=== PATIENT | female | born 2000 | race Caucasian/White ===

== ENCOUNTER 2025-01-10 12:11 | Emergency (ER) | payer MEDICAID, SELFPAY ==
[2025-01-10 12:12] VITALS: BP 142/67; PULSE 87; RESP 16; TEMP 36.7; O2SAT 100
--- NOTE | 2025-01-10 12:42 | ED.VIS.BACK ---
HPI History of Present Illness Chief Complaint: Back Detail of Chief Complaint: Back pain Informant: patient Narrative Narrative: Patient presents with low back pain that started around midnight. Patient states that she is about 7 weeks . She had intercourse with her fianc? last night and afterwards when she peed she noticed a little bit of blood. She complains of some lower abdominal cramping. She had an ultrasound last week that they were able to see a intrauterine with heartbeat. She has another ultrasound scheduled in 2 days. She has not had any further vaginal bleeding. She denies injury to her back. She denies pain radiating down her legs. PFSH PFSH Home Medications ?Medication ?Instructions ?Recorded ?Last Taken ?Type nitrofurantoin 100 mg PO Q12H 7 days #14 caps 01/10/25 Unknown Rx monohydrate/macrocrystals 100 mg capsule (Macrobid) Allergy/AdvReac Type Severity Reaction Status Date / Time azithromycin (From z pack) Allergy Mild WHEEZING Verified 01/10/25 12:15 Social History Smoking Status: Never smoker ROS ROS ED Review of Systems ROS Unobtainable: other Constitutional Constitutional ED: Reports lethargy; Denies chills, fever(s), sweats or weight loss Eyes Eyes: Denies blurry vision, change in vision or diplopia ENT ENT ED: Denies rhinorrhea or sore throat Cardiovascular Cardiovascular: Denies chest pain, orthopnea or racing heartbeat Respiratory/Chest Respiratory/Chest: Denies cough, dyspnea, dyspnea on exertion, orthopnea or sputum Gastrointestinal Gastrointestinal: Denies abdominal pain, diarrhea, nausea or vomiting Genitourinary Genitourinary ED: Denies dysuria, hematuria or urinary frequency Musculoskeletal Musculoskeletal: Reports back pain; Denies arthralgias, myalgias or neck pain Integumentary Denies abscess, Abrasions or rash Neurologic Neurologic: Denies headache(s) or weakness Psychiatric Psychiatric: Denies anxiety, depression or suicidal thoughts Endocrine Endocrinology: Denies polydipsia, polyphagia or polyuria Hematologic/Lymphatic Hematologic/Lymphatic: Denies easy bleeding, easy bruising or lymphadenopathy Allergic/Immunologic Allergic/Immunologic ED: Denies mouth swelling, tongue swelling or urticaria EXAM Physical Exam Const Vital Signs: 01/10/25 12:12 01/10/25 14:12 Temperature 98.1 F Temperature Source Temporal Pulse Rate 87 64 Respiratory Rate 16 18 Blood Pressure 142/67 H 121/66 H Blood Pressure Mean 92 84 Pulse Ox 100 98 Oxygen Delivery Method Room Air Room Air Positive well nourished and well developed General Appearance ED: well developed and NAD HEENT Reports TM's clear and moist mucous membranes normocephalic and atraumatic; Negative for trauma or tenderness Tympanic Membrane ED: Yes TM's clear Eyes PERRL and EOMs intact bilaterally General Eye ED: Negative for pale conjunctiva or scleral icterus Neck no lymphadenopathy, supple and no JVD General: Negative for tenderness Chest Wall inspection of chest normal and palpation of chest normal Chest: Negative for tenderness Resp normal respiratory effort and clear to auscultation bilaterally Effort and Inspection: Negative for respiratory distress or pain with movement Auscultation: Negative for rhonchi, wheezes or diminished lung sounds Cardio regular rate, regular rhythm, S1 normal heart sound, S2 normal heart sound and no murmurs Peripheral Pulses: pulses 2+ throughout GI normal to inspection, nondistended, normoactive bowel sounds, soft to palpation, non-tender, non-distended and no masses Back/Spine no CVA tenderness Back/Spine Narrative: Mild tenderness palpation over left lumbar paraspinal musculature. Negative straight leg raises. Deep tendon reflexes plus 2 out of 4 bilaterally at the patella and Achilles. She has normal 5 extension. She has normal sensation to light touch Extremity normal to inspection General Extremety ED: Negative for edema General Extremity: Negative for edema Neuro oriented x3, CN's II-XII intact bilaterally, no sensory deficits noted and gait normal Sensorium / Orientation: awake, alert, oriented to person, oriented to place and oriented to time Motor Exam: strength 5/5 throughout and strength abnormal Psych mental status grossly normal Skin no rashes or lesions noted and no wounds MDM MDM MDM Narrative Medical decision making narrative: Patient presents with low back pain and some spotting after intercourse last night. She complains of some lower abdominal cramping. Clinically she looks well. Had an ultrasound of the pelvis last week that showed an intrauterine based on patient giving the history. She also has an ultrasound scheduled for 2 days from now. I did obtain a quant which was [phone]. Type and Rh was O+. Patient also had a urinalysis that was positive for 500 leukocyte esterase and 5-10 WBCs as well as +1 bacteria. Urine culture was sent. Will start patient on Macrobid. I do not feel she needs an emergent ultrasound. She is advised to return if fever, vomiting, heavy vaginal bleeding or condition should worsen anyway. Lab Data Attestation: I reviewed the patient's lab results. Labs: Laboratory Results - last 24 hr 01/10/25 01/10/25 01/10/25 13:04 13:10 13:30 HCG, Quant [id number] H Urine Color Yellow Urine Clarity Clear Urine pH 7.0 Ur Specific [place] 1.010 Urine Protein 15 H Urine Glucose (UA) Normal Urine Ketones Negative Urine Occult Blood Negative Urine Nitrite Negative Urine Bilirubin Negative Urine Urobilinogen Normal Ur Leukocyte Esterase 500 H Urine WBC 5-10 SEEN Ur Squamous Epith Cells 0-5 SEEN Urine Bacteria 1+ Urine Mucus 0 SEEN Blood Type Cancelled O POSITIVE Discharge Plan Triage Chief Complaint: Back ED Provider: Sara Frausto Dx/Rx/DC Orders Clinical Impression: UTI (urinary tract infection), Back pain, First trimester Instructions: UTIs Understanding, 1st Trimester, ED Back Pain (Acute or Chronic) Prescriptions: New nitrofurantoin monohyd/m-cryst [Macrobid] 100 mg capsule 100 mg PO Q12H 7 Days Qty: 14 0RF Rx Instructions: must administer with a meal/food Primary Care Provider: Care Physician,No Primary Referrals: Care Physician,No Primary [Primary Care Provider] - Activity Restrictions/Additional Instructions: Pelvic rest until follow-up with [facility], keep your appointment for ultrasound in 2 days. Print Language: Bulgarian Disposition Disposition: Home, Self Care
[2025-01-10 13:13] LABS: Mucous, Urine 0 SEEN /hpf (<or=2+)
[2025-01-10 13:15] LABS: Color, Urine Yellow (Yellow); Glucose, Dipstick Normal (Normal); Ketone-Dipstick Negative (Negative); Leukocyte Esterase-Dipstick 500 /ul (Negative); Nitrite-Dipstick Negative (Negative); Occult Blood-Urine Negative /ul (Negative); Protein-Dipstick 15 mg/dl (Negative); Urine Bilirubin Dipstick Negative (Negative); Urine Clarity Clear (Clear); Urine Urobilinogen Normal (Normal)
[2025-01-10 13:22] LABS: Bacteria 1+ /hpf (None Seen); Squamous Epithelial Cells - UA 0-5 SEEN /hpf (5-10); White Blood Cells 5-10 SEEN /hpf (0-5)
[2025-01-10 14:12] VITALS: BP 121/66; PULSE 64; RESP 18; O2SAT 98
[2025-01-10 14:45] LABS: hCG Titer Quant., Serum 86909 mIU/mL (<9 non-preg)
[2025-01-10] MEDS: Nitrofurantoin Macrocrystals 100 MG Capsule PO (15:18)
[2025-01-10 15:35] LABS: Red Blood Cells-Urine 0 SEEN /hpf (0-5)
== END 2025-01-10 15:23 | disposition home or self-care (01) ==
PROVIDERS: Emergency Provider Emergency Medicine; Visit Provider Emergency Medicine
DX: O23.41 Unspecified infection of urinary tract in pregnancy, first trimester (principal); Z3A.01 Less than 8 weeks gestation of pregnancy
CPT/HCPCS: 81001; 84702; 86900; 86901; 87086; 87088; 99283; A4216